=== PATIENT | male | born 1960 | race Caucasian/White ===

== ENCOUNTER 2017-12-15 01:59 | Observation (INO) | payer MEDICAID ==
[~2017-12-15] VITALS: Ht 190.5 cm; Wt 68.9 kg
[2017-12-15 03:06] LABS: EOS % 0.7 % (0.0-4.0); HEMATOCRIT 42.1 % (42.0-52.0); HEMOGLOBIN 14.4 g/dL (13.5-18.0); LYMPH# 0.9 (1.50-4.00); MEAN CELL VOLUME 85 fl (78-100); MEAN CORPUSCULAR HEMOGLOBIN 29 pg (27-31); MEAN CORPUSCULAR HGB CONC 34 g/dL (33-37); MEAN PLATELET VOLUME 9.9 fl (7.4-10.4); MONO # 0.3 (0.20-0.80); NEU # 4.1 (1.40-6.50); PLATELET COUNT 119 K/mm3 (130-400); RED BLOOD COUNT 4.93 M/mm3 (4.20-5.60); RED CELL DISTRIBUTION WIDTH 13.4 % (11.5-14.5); WHITE BLOOD COUNT 5.5 K/mm3 (4.8-10.8)
[2017-12-15 03:21] LABS: ALBUMIN 4.1 g/dL (3.5-5.0); ALCOHOL IN-HOUSE 17 mg/dL; ALT/SGPT 516 U/L (21-72); AST-SGOT 615 U/L (17-59); BUN/CREATININE RATIO 14.7 (6.0-26.0); CALCIUM 8.9 mg/dL (8.4-10.2); CARBON DIOXIDE 22 mmol/L (22-30); GLUCOSE 234 mg/dL (75-110); POTASSIUM 4.6 mmol/L (3.6-5.0); SODIUM 131 mmol/L (137-145); TOTAL BILIRUBIN 1.2 mg/dL (0.2-1.3); TOTAL PROTEIN 7.5 g/dL (6.3-8.2)
[2017-12-15] MEDS ORDERED: LEVEMIR FLEX100 U/ML SQ ×2 (04:10→04:16)
[2017-12-15] MEDS ORDERED: NOVOLOG FLEX100 U/ML SQ (04:13)
[2017-12-15] MEDS ORDERED: DESYREL 100MG100 MG PO (04:13)
[2017-12-15] MEDS ORDERED: PRILOSEC OTC20 MG PO (04:13)
[2017-12-15] MEDS ORDERED: TYLENOL 325MG325 MG PO ×2 (04:14)
[2017-12-15] MEDS ORDERED: FLUOXETINE HCL10 MG PO (04:16)
[2017-12-15] MEDS ORDERED: NEURONTIN300 M1 PO (04:16)
[2017-12-15] MEDS ORDERED: PROTEINEX PO (04:18)
[2017-12-15 07:52] VITALS: BP 130/71
[2017-12-15 07:54] VITALS: BP 130/71
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
--- NOTE | 2017-12-15 09:00 | NUR ---
Pt sister Heather calls to check on pt status and inquires about pt going to an inpatient rehab facility. After discussing with pt, pt states "I think that would be a good idea" Yoana Alvares notified
--- NOTE | 2017-12-15 10:27 | NUR ---
Pt rings and states he feels like his blood sugar is low. Pt appears diaphoretic. BS was 36. Yoana Alvares notified and pt currently drinking OJ and eating sandwich
[2017-12-15 11:48] VITALS: BP 126/71
--- NOTE | 2017-12-15 12:26 | NUR ---
SURINDER at pt bedside to confirm pt identity. SURINDER reports he will take pt off missing person list.
[2017-12-15 15:10] VITALS: BP 139/84
[2017-12-15 18:15] VITALS: BP 149/87
--- NOTE | 2017-12-15 19:00 | NUR ---
REPORT RECEIVED BY YI Starkey RN.
--- NOTE | 2017-12-15 21:00 | NUR ---
PATIENT IS OBSERVED TO BE SLEEPING HEAVILY IN HIS BED. PATIENT DOES NOT APPEAR TO BE IN ANY OBVIOUS DISTRESS AT THIS TIME. PATIENT AROUSES TO TOUCH AND HIS NAME BEING CALLED OUT. PATIENT IS DROWSY DURING THE INTERACTION, BUT IS ORIENTED. PATIENT CONSUMES HIS MEDICATION WITH NO OBVIOUS DIFFICULTY. PATIENT REQUESTS A MULTITUDE OF SUGARY SNACKS AND SODA, BUT COMPRIMISES WITH A TURKEY SANDWICH AND A DIET SPRITE. PATIENT INDICATES UNDERSTANDING WHEN PROVIDED EDUCATION REGARDING THE FSBS AND INSULIN ADMINISTRATION. PATIENT CONTINUES TO RECEIVE NS AT 125 ML/HR INTO AN IV IN THE LFA. PATIENT STATES HE HAS MILD BACK PAIN AND REQUESTS SOME APAP OR MOTRIN FOR IT, STATING "IT'S NOT NEW." PATIENT CONTROLS HOB ELEVATION INDEPENDENTLY. BED RAILS UP X2. BED ALARM ARMED AT ALL TIMES. CALL LIGHT WITHIN REACH. CLOSE MONITORING AND HOURLY ROUNDING CONTINUE.
[2017-12-15 23:01] VITALS: BP 97/58
--- NOTE | 2017-12-16 01:00 | NUR ---
PATIENT'S FLUIDS RAN OUT AND NO ORDER TO CONTINUE AFTER THIS BAG COMPLETED. LUISA MONCADA APRN CONTACTED, WHO GAVE ORDERS TO LEAVE THE IV FLUIDS STOPPED AND NOT CONTINUE THEM, PATIENT IS NOW EATING AND DRINKING VERY WELL, WELL HIS BLOOD PRESSURE IS WNL.
--- NOTE | 2017-12-16 01:01 | NUR ---
PATIENT DOES NOT APPEAR TO BE IN ANY OBVIOUS DISTRESS. PATIENT IS SLEEPING QUIETLY IN BED. PATIENT HAS HAD NO COMPLAINTS OR REQUESTS. PATIENT CHANGES HIS POSITION IN BED INDEPENDENTLY THROUGHOUT THE NIGHT. BED RAILS UP X2. BED ALARM ARMED AT ALL TIMES. CALL LIGHT WITHIN REACH. CLOSE MONITORING AND HOURLY ROUNDING CONTINUE.
[2017-12-16 03:00] VITALS: BP 125/74
--- NOTE | 2017-12-16 05:57 | NUR ---
PATIENT CONTINUES TO REST QUIETLY IN BED. PATIENT DOES NOT APPEAR TO BE IN ANY OBVIOUS, ACUTE DISTRESS. PATIENT CHANGES HIS POSITION IN BED INDEPDENTLY THROUGOUT THE NIGHT. PATIENT HAS NOT DISPLAYED ANY AGITATION, AGGRESSION, ANXIETY OR TREMORS THROUGHOUT THE NIGHT. PATIENT HAS INTERACTED APPROPRIATELY WITH STAFF. PATIENT HAS HAD NO FURTHER COMLAINTS. PATIENT CONTINUES TO REQUEST FREQUENT SNACKS, AND COMPRIMISES ON SUGAR-FREE AND CARB LOADS. PATIENT CONTROLS HIS HOB ELEVATION INDEPENDENTLY. BED RAILS UP X2. BED ALARM ARMED AT ALL TIMES. CALL LIGHT WITHIN REACH. CLOSE MONITORING AND HOURLY ROUNDING CONTINUE.
[2017-12-16 06:29] VITALS: BP 107/70
--- NOTE | 2017-12-16 06:45 | NUR ---
REPORT GIVEN TO YI Starkey RN.
[2017-12-16 08:16] LABS: EOS # 0.3 (0.04-0.40); EOS % 5.1 % (0.0-4.0); HEMATOCRIT 39.3 % (42.0-52.0); HEMOGLOBIN 12.7 g/dL (13.5-18.0); LYMPH# 1.6 (1.50-4.00); MEAN CELL VOLUME 90 fl (78-100); MEAN CORPUSCULAR HEMOGLOBIN 29 pg (27-31); MEAN CORPUSCULAR HGB CONC 32 g/dL (33-37); MEAN PLATELET VOLUME 10.2 fl (7.4-10.4); MONO # 0.3 (0.20-0.80); NEU # 3.3 (1.40-6.50); PLATELET COUNT 110 K/mm3 (130-400); RED BLOOD COUNT 4.36 M/mm3 (4.20-5.60); WHITE BLOOD COUNT 5.5 K/mm3 (4.8-10.8)
[2017-12-16 08:41] LABS: BUN/CREATININE RATIO 16.7 (6.0-26.0); CALCIUM 8.1 mg/dL (8.4-10.2); POTASSIUM 4.6 mmol/L (3.6-5.0)
--- NOTE | 2017-12-16 10:00 | NUR ---
PT REQUESTING MULTIPLE CUPS OF COFFEE THROUGHOUT THE MORNING, ENCOURAGED TO DRINK WATER AND CUT BACK ON SO MUCH COFFEE INTAKE, PT EASILY REDIRECTED AND AGREES TO DRINK WATER, THIS NURSE STATES IN 1 HOUR HE CAN HAVE ANOTHER 1/2 CUP OF COFFEE
[2017-12-16 11:08] VITALS: BP 104/85
--- NOTE | 2017-12-16 15:15 | NUR ---
Patient alert and oriented. Denies pain. Requests to go on a walk. Ambulates in hallway >150 feet. Gait is mostly steady with use of cane. Denies shortness of breath. Asks to walk to the vending machine to get snacks. Education provided on healthy snack choices for a diabetic diet. Patient verbalizes understanding. Purchases snack mix and a jumbo honey bun. Returns to room 202. Sitting up in recliner. INT to left forearm. Denies needs or questions at this time. Fall precautions in place.
[2017-12-16 15:44] VITALS: BP 103/71
--- NOTE | 2017-12-16 18:17 | NUR ---
PT ASSISTED TO RESTROOM AT THIS TIME WITH 1:1 CGA USING GAIT BELT, PT EDUCATED TO USE CALL LIGHT WHEN HE IS DONE WITH RESTROOM, PT IS ALERT AND ORIENTED AT THIS TIME AND HAS BEEN USING CALL LIGHT APPROPRIATELY, THIS NURSE ENTERED PT'S ROOM AFTER HEARING THE TOILET FLUSH TO FIND PT WALKING INDEPENDENTLY WITH GAIT BELT STILL APPLIED, PT REMINDED THAT HE HAS TO USE THE CALL LIGHT BEFORE GETTING OFF OF THE TOILET, PT APOLOGIZES AND STATES HE SIMPLY FORGOT AND WILL TRY AND DO BETTER, WILL PASS THIS ON TO LEGAL FINANCIAL SPECIALIST AND IN REPORT TO CLOSELY MONITOR PT WHILE USING THE TOILET WITHOUT ALARMS
[2017-12-16 18:37] VITALS: BP 124/77
--- NOTE | 2017-12-16 19:03 | NUR ---
REPORT RECEIVED FROM YI Starkey RN.
--- NOTE | 2017-12-16 20:30 | NUR ---
THIS RN IN WITH PATIENT TO ADMINISTER HS MEDICATIONS AND PERFORM EVENING ASSESSMENT. PATIENT DOES NOT APPEAR TO BE IN ANY OBVIOUS DISTRESS AT THIS TIME. PATIENT IS ALERT AND ORIENTED, PLEASANT AND COOPERATIVE. PATIENT IS WATCHING TV AND CONSUMES HIS MEDICATION WITH NO OBVIOUS DIFFICULTY. PATIENT REQUESTS A SNACK AND IT IS PROVIDED. PATIENT IS VERY PERSONABLE AND EXPRESSES THANKS TO STAFF MULTIPLE TIMES, STATING "YES MAAM AND NO MAAM" WELL. PATIENT CONTROLS HOB INDEPENDENTLY. BED RAILS UP X2. BED ALARM ARMED AT ALL TIMES. CALL LIGHT WITHIN REACH. CLOSE MONITORING AND HOURLY ROUNDING CONTINUE.
[2017-12-16 23:10] VITALS: BP 120/80
--- NOTE | 2017-12-17 01:55 | NUR ---
PATIENT'S LOOKS AT THE WALL OXYGEN LEVEL AND ASKS "WHAT IS HIS OXYGEN AT?" INFORMED THAT IT WAS TURNED DOWN TO 1L. PATIENT'S ASKS "IF HE IS SO SICK, WHY IS IT SO LOW?" PATIENT'S PROVIDED EDUCATION REGARDING COPD AND PROPER OXYGENATION LEVELS. PATIENT'S HAD NO FURTHER QUESTIONS.
[2017-12-17 03:00] VITALS: BP 121/74
--- NOTE | 2017-12-17 03:00 | NUR ---
PATIENT CONTINUES TO REST QUIETLY IN BED. PATIENT DOES NOT APPEAR TO BE IN ANY OBVIOUS DISTRESS AT THIS TIME. PATIENT CHANGES HIS POSITION IN BED INDEPENDENTLY THROUGHOUT THE NIGHT. BED RAILS UP X2. BED ALARM ARMED AT ALL TIMES. CALL LIGHT WITHIN REACH. CLOSE MONITORING AND HOURLY ROUNDING CONTINUE.
--- NOTE | 2017-12-17 03:29 | NUR ---
[facility] CONTACTED FOR TRANSFER.
[2017-12-17 06:29] VITALS: BP 115/72
--- NOTE | 2017-12-17 06:59 | NUR ---
REPORT GIVEN TO VICKI Reyes RN.
--- NOTE | 2017-12-17 07:46 | NUR ---
AWAKE, SITTING IN CHAIR. GENERALLY FEELS WELL. TALKATIVE. DISCUSS DISCHARGE WISHES. PATIENT TALKS ABOUT GOING BACK TO [facility]. HE SPEAKS NICELY OF STAFF AND RESIDENTS THERE. MENTIONS HE STARTED GOING TO [place] WITH THEM AND WOULD LIKE TO GET BACK INTO THAT. HE SPEAKS OF RETURNING TO [facility] A TEMPORARY OPTION. HIS DISABILITY CHECKS HAVE RECENTLY STARTED PAYING AND HE WOULD LIKE TO FIND AN APARTMENT TO LIVE IN; PERHAPS ATTEND REHAB AGAIN. HE ACKNOWLEDGES THAT HE TENDS TO RUN WHEN LIFE IS GOING GOOD. ENCOURAGE PATIENT THE IMPORTANT THING IS TO GET [place]. HE AGREES. DENIES HALLUCINATIONS. NO TREMOR NOTED WITH EXTENSION OF ARMS. PATIENT STATES "I THINK I'M PAST THE DT PART." BILAT LE TIGHT AND EDEMATOUS; NONPITTING. PATIENT REPORTS PAIN 6/10 TO LE; NEUROPATHY DISCOMFORT. IT IS TOLERABLE AT PRESENT. ENCOURAGE PATIENT TO WALK WITH STAFF TODAY.
--- NOTE | 2017-12-17 10:09 | NUR ---
REPORT PROVIDED TO OJVANA MUSE.
[2017-12-17 10:55] VITALS: BP 100/54
--- NOTE | 2017-12-17 13:10 | NUR ---
Pt records are faxed to [facility], [facility], and [facility]. Records are under review at all of these facilities. [facility] Admission coordinator, Amirah, @ [phone] states that pt left AMA, and they filled his bed and have no other beds available, until possibly Sunday.
[2017-12-17 15:09] VITALS: BP 110/62
[2017-12-17 17:49] VITALS: BP 102/59
--- NOTE | 2017-12-17 19:13 | NUR ---
REPORT RECEIVED FROM VICKI Reyes RN AND JOVANA Dang RN.
[2017-12-17 22:25] VITALS: BP 105/67
--- NOTE | 2017-12-17 22:30 | NUR ---
CARE RESUMED BY THIS RN AT THIS TIME. PATIENT DOES NOT APPEAR TO BE IN ANY OBVIOUS DISTRESS. PATIENT CHANGES HIS POSIION IN BED INDEPENDENTLY THORUGHOUT THE NIGHT. BED RAILS UP X2. BED ALARM ARMED AT ALL TIMES. CALL LIGHT WITHIN REACH. CLOSE MONITORING AND HOURLY ROUNDING CONTINUE.
[2017-12-18 02:31] VITALS: BP 106/64
--- NOTE | 2017-12-18 06:15 | NUR ---
ERICKA JUAREZ REPORTS PATIENT ASKED ABOUT THE NEAREST [place] BUS STOP.
[2017-12-18 06:20] VITALS: BP 117/74
--- NOTE | 2017-12-18 06:51 | NUR ---
REPORT GIVEN TO YI Starkey RN.
--- NOTE | 2017-12-18 09:44 | NUR ---
PAULA Posey Heather, returns call and states that [facility]nel [facility] will not accept pt due to his alcoholism and having left previous facility AMA ([facility] was pt's first request for a [facility] room - as his family lives close by). [facility] has no open beds at this time. [facility] Jana MITCHELL, states that they cannot accept pt for having left AMA, they consider him an elopement risk. On 12-17-17 [facility] agreed to interview pt w/ the potential of accepting him @ 10:30 this am, 12-18-17. [facility] states that they have other residents w/ a h/o alcoholism and believe they can work w/ pt, they have the capability of offering pt psychiatric evaluation and treatment via skyping w/ a psychiatrist. Pt is notified of this and likes this idea and states he has been talking w/ his nephew who has encouraged him to seek some kind of help for his alcoholism, but he wasn't sure how to go about this. Pt is also notifed that [facility] and [facility] will require him to sign paperwork that they are his personal service representative payee, pt is agreeable. He asks if he will be able to smoke and is told that most facilities are smoke free, but that we can send him w/ orders for a nicotine patch. He states that he has one on since he came here and it does seem to help. Pt acknowledges that he did leave AMA from [facility] and didn't realize the repercussions that action would have, and states he will not do that again. He verbalizes understanding that LTCF's will help pt's set goals and work towards those goals to live in a living environment that will meet their needs if there is a possibility they may not need LTC indefinitely, but will also provide care if those goals cannot be met. He agrees that he needs this kind of help and will not consider leaving AMA again, stating, "That was a big mistake. I lived at [facility] for over a year, and I liked it there". He is aware of the location of [facility] and states he likes the area, and the country [place], he also likes the fact that there may be an opportunity to have psychiatric assistance and states he will have no problem signing that they can be his personal service representative payee.
--- NOTE | 2017-12-18 09:57 | NUR ---
Pt laying in bed wakes when this nurses knocks on the door and enters room. Pt answers all questions appropriatly aware of surrondings, no signs of confusion noted at this time. Pt denies any pain at this time. Pt only request at this time is for a Diet Coke. NSL removed at this time
[2017-12-18 10:56] VITALS: BP 102/61
[2017-12-18 15:00] VITALS: BP 106/69
[2017-12-18 18:09] VITALS: BP 97/57
--- NOTE | 2017-12-18 19:00 | NUR ---
REPORT RECEIVED FROM YI Starkey RN AND TY Hollins RN.
--- NOTE | 2017-12-18 20:13 | NUR ---
PATIENT IS RESTING QUIETLY IN BED. PATIENT DOES NOT APPEAR TO BE IN ANY OBVIOUS DISTRESS AT THIS TIME. PATIENT CHANGES HIS POSITION IN BED INDEPENDENTLY THROUGHOUT THE NIGHT. PATIENT CONTINUES TO REQUEST FREQUENT SNACKS. BED RAILS UP X2. BED ALARM ARMED AT ALL TIMES. CALL LIGHT WITHIN REACH. CLOSE MONITORING AND HOURLY ROUNDING CONTINUE.
--- NOTE | 2017-12-18 20:52 | NUR ---
PT HAS BEEN ACCEPTED BY [facility]. CARE ASSESMENT WILL BE PREFORMED AT 0815 ON 12/19/17. ALL DISCHARGE INFORMATION NEEDS TO BE FAXED TO [facility] AND [facility] SOON IT IS AVAILABLE.
[2017-12-18 22:24] VITALS: BP 133/79
[2017-12-19 02:12] VITALS: BP 117/73
--- NOTE | 2017-12-19 04:25 | NUR ---
PATIENT CONTINUES TO REST QUIETLY IN BED. PATIENT DOES NOT APPEAR TO BE IN ANY OBVIOUS, ACUTE DISTRESS. PATIENT CHANGES HIS POSITION IN BED INDEPENDENTLY THROUGHOUT THE NIGHT. BED RAILS UP X2. BED ALARM ARMED AT ALL TIMES. CALL LIGHT WITHIN REACH. CLOSE MONTIORING AND HOURLY ROUNDING CONTINUE.
[2017-12-19 06:31] VITALS: BP 124/74
--- NOTE | 2017-12-19 06:49 | NUR ---
REPORT GIVEN TO YI Starkey RN.
--- NOTE | 2017-12-19 08:22 | NUR ---
Screener in room completing CARE assessment.
[2017-12-19] MEDS ORDERED: PROTONIX20 M1 PO (09:22)
[2017-12-19] MEDS ORDERED: DESYREL 100MG100 MG PO (09:22)
[2017-12-19] MEDS ORDERED: FLUOXETINE HCL10 MG PO (09:22)
[2017-12-19] MEDS ORDERED: ATIVAN0.5 MG PO (09:22)
[2017-12-19] MEDS ORDERED: LEVEMIR100 U/M1 SQ ×2 (09:22)
[2017-12-19] MEDS ORDERED: NEURONTIN300 MG/CAP PO (09:22)
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
[2017-12-19 10:22] VITALS: BP 124/74
[2017-12-19 10:46] VITALS: BP 116/70
--- NOTE | 2017-12-19 11:40 | NUR ---
Pt leaves at this time with [facility]. Report called to Anne. Pt leaves with all belongings
--- NOTE | 2017-12-19 16:11 | NUR ---
APS Report #[id number] made with information as noted earlier. [employer] called and assignment of a Director Of Marketing [employer] is requested...Yunier at [phone] takes information and states he will wait for [employer] ([employer]) CARE Assessment and then will work on getting pt assigned a CM through [employer].
== END 2017-12-19 11:40 ==
LOC: ED 01:59 → MED/SURG 07:19
PROVIDERS: Physician Assistant; ADMIT Nurse Practitioner Primary Care
DX: F10.230 Alcohol dependence with withdrawal, uncomplicated (principal); Y90.0 Blood alcohol level of less than 20 mg/100 ml; Z79.4 Long term (current) use of insulin; I10 Essential (primary) hypertension; E11.42 Type 2 diabetes mellitus with diabetic polyneuropathy; Z88.0 Allergy status to penicillin; F32.9 Major depressive disorder, single episode, unspecified; R62.7 Adult failure to thrive; R74.8 Abnormal levels of other serum enzymes; F17.200 Nicotine dependence, unspecified, uncomplicated
CPT/HCPCS: G0378; J1815; J2060; J3411; J3490; J7030